=== PATIENT | female | born 1960 | race Caucasian/White ===

== ENCOUNTER → 2019-09-18 | Day surgery (SDC) | payer BC ==
[~2019-09-18] MED LIST: HYDROmorphone 2 MG/ML VIAL IV PRN; IV RINGERS,LACTATED 1000ML 1,000 ML IV SCH; LIDOCAINE 1% PF 2 ML VIAL. ID PRN; LIDOCAINE 2% PF 5 ML VIAL. ONE; MORPHINE SULFATE 2 MG/ML VIAL. IV PRN; NAPR500T8 PO; OLME20TA17 PO; OMEP40CA45 PO; ONDANSETRON PF 4 MG/2 ML VIAL. IV PRN; OXYB5TAB10 PO; PROCHLORPERAZINE 10 MG/2 ML VIAL. IV PRN; PROPOFOL 40 ML IV ONE; ROPI0.254 PO; VALS80TA3 PO; VENL37.56 PO; fentaNYL PF VIAL 100 MCG/2 ML VIAL IV PRN
[2019-09-18 08:50] VITALS: BP 125/60
--- NOTE | 2019-09-21 14:07 | PATHOLOGY ---
[facility] Accession Number: [id number] . 01 Material submitted: . esophagus - DISTAL ESOPHAGUS. Modifiers: distal . 01 Clinical history: . Pre-OP DX: GERD Post-OP DX: Rule out Alvarez's . 02 Diagnosis: Esophageal biopsies, distal esophagus: - Segments of hyperplastic squamous esophageal mucosa consistent with reflux esophagitis. (JPM:[facility] 09/21/2019) [facility] 09/21/2019 0916 Local . 02 Comment: Sections of the distal esophageal biopsy reveal segments of tangentially oriented hyperplastic squamous esophageal mucosa with focally attached lamina propria and muscularis mucosa. The findings are consistent with reflux esophagitis. There is no evidence of Alvarez's change, dysplasia, or malignancy. (JPM:[facility] 09/21/2019) . 02 Electronically signed: . Maxwell Manuel MD, Pathologist NPI- [id number] . 01 Gross description: . Received in formalin labeled "Valerie Wade, distal esophagus BX," are 3 segments of bowles soft tissue measuring 0.9 x 0.8 x 0.2 cm in aggregate dimensions and ranging from 0.4 to 0.5 cm in maximum dimension. The specimen is submitted entirely in cassette A1. (TSD; 09/18/2019) TOB/TOB 09/18/2019 2259 Local . 02 Pathologist provided ICD-10: K21.9 . 02 CPT . 242021 Specimen Comment: A courtesy copy of this report has been sent to [phone], [phone] Specimen Comment: [id number] Specimen Comment: Report sent to and Performed at: [address], [place], [place] [id number] MD Nino Lemon MD Phone: [phone] Performed at: 02 [facility] [address] [place], [place] [id number] MD Maxwell Manuel MD Phone: [phone]
== END ==
LOC: ENDOS 06:54
PROVIDERS: ATTEND Internal Medicine Gastroenterology
DX: Z12.11 Encounter for screening for malignant neoplasm of colon (principal); K64.0 First degree hemorrhoids; K21.0 Gastro-esophageal reflux disease with esophagitis; K44.9 Diaphragmatic hernia without obstruction or gangrene; F15.90 Other stimulant use, unspecified, uncomplicated; K63.89 Other specified diseases of intestine; Z88.3 Allergy status to other anti-infective agents; Z72.89 Other problems related to lifestyle; Z98.890 Other specified postprocedural states; Z96.60 Presence of unspecified orthopedic joint implant
CPT/HCPCS: 43239; 45378; 88305; J2001; J2704

== ENCOUNTER → 2020-12-05 | Outpatient (CLI) | payer BC ==
[2019-09-18 08:50] VITALS: BP 125/60
[~2020-12-05] MED LIST changes: +HYDR-2145 PO; -HYDROmorphone 2 MG/ML VIAL IV PRN; -IV RINGERS,LACTATED 1000ML 1,000 ML IV SCH; -LIDOCAINE 1% PF 2 ML VIAL. ID PRN; -LIDOCAINE 2% PF 5 ML VIAL. ONE; -MORPHINE SULFATE 2 MG/ML VIAL. IV PRN; -ONDANSETRON PF 4 MG/2 ML VIAL. IV PRN; +OXYC-325 PO; -PROCHLORPERAZINE 10 MG/2 ML VIAL. IV PRN; -PROPOFOL 40 ML IV ONE; -fentaNYL PF VIAL 100 MCG/2 ML VIAL IV PRN
== END ==
LOC: LAB 10:22
PROVIDERS: ATTEND Surgery
DX: Z01.812 Encounter for preprocedural laboratory examination (principal); K80.10 Calculus of gallbladder with chronic cholecystitis without obstruction; Z20.822 Contact with and (suspected) exposure to COVID-19
CPT/HCPCS: U0003

== ENCOUNTER 2020-12-08 07:19 | Day surgery (SDC) | payer BC ==
[~2020-12-08] VITALS: Ht 160 cm; Wt 114.5 kg
[~2020-12-08 07:19] MED LIST changes: +ACETAMINOPHEN 500 MG TABLET PO PRN; +HYDROmorphone 2 MG/ML VIAL IVP PRN; +IV RINGERS,LACTATED 1000ML 1,000 ML IV SCH; +MORPHINE SULFATE 2 MG/ML VIAL. IVP PRN; -OXYC-325 PO; +PROCHLORPERAZINE 10 MG/2 ML VIAL. IVP PRN; +fentaNYL PF VIAL 100 MCG/2 ML VIAL IVP PRN
[2020-12-08] MEDS ORDERED: fentaNYL PF VIAL 100 MCG/2 ML VIAL ONE ×3 (07:58→10:31)
[2020-12-08] MEDS ORDERED: ROCURONIUM 50 MG/5 ML VIAL. ONE (07:58)
[2020-12-08] MEDS ORDERED: KETOROLAC 30 MG/ML VIAL. ONE (07:58)
[2020-12-08] MEDS ORDERED: DEXAMETHASONE SOD PHOS 4 MG/ML VIAL ONE (07:58)
[2020-12-08] MEDS ORDERED: LIDOCAINE 2% PF 5 ML VIAL. ONE ×2 (07:58→09:31)
[2020-12-08] MEDS ORDERED: MIDAZOLAM HCL/PF 2 MG/2 ML VIAL. ONE (07:58)
[2020-12-08] MEDS ORDERED: SEVOFLURANE 61 TO 120 MINUTES. IH ONE (07:58)
[2020-12-08] MEDS ORDERED: PROPOFOL 10 MG/ML (20ML) VIAL. IV ONE (07:58)
[2020-12-08] MEDS ORDERED: ONDANSETRON PF 4 MG/2 ML VIAL. ONE (07:59)
[2020-12-08] MEDS ORDERED: BUPIVACAINE-EPI 0.25% 30 ML VIAL KIT. ONE (08:22)
[2020-12-08] MEDS ORDERED: IOHEXOL 300 MG/ML 50 ML VIAL. ONE (08:22)
[2020-12-08] MEDS ORDERED: SURGICEL HEMOSTAT 4X8 EACH. ONE (08:22)
[2020-12-08] MEDS ORDERED: OXYC-325 PO (09:02)
[2020-12-08] MEDS ORDERED: PHENYLEPHRINE 10 MG/ML VIAL. ONE (09:11)
[2020-12-08] MEDS ORDERED: GLYCOPYRROLATE 1 MG/5 ML VIAL. ONE (09:13)
[2020-12-08] MEDS ORDERED: NEOSTIGMINE METHYLSULFATE 5 MG/5 ML SYRINGE. ONE (09:13)
[2020-12-08] MEDS ORDERED: ePHEDrine PF IN SALINE 50 MG/10 ML SYRINGE. IV ONE (09:25)
[2020-12-08] MEDS ORDERED: oxyCODONE/APAP 5/325 1 TAB TABLET PO ONE ×2 (09:30)
--- NOTE | 2020-12-08 09:32 | PDOC4 ---
Operative Note Operative Note Date: December 082020 at 929 Preoperative diagnosis: Chronic cholecystitis cholelithiasis Postoperative diagnosis: Same Procedure: Laparoscopic cholecystectomy Surgeon: Cruzito Specimen: Gallbladder Dictation: Patient is a 60-year-old female with right upper quadrant abdominal pain ultrasound showing gallstones. Procedure of laparoscopic cholecystectomy was explained to the patient detail risk benefits were also discussed including bleeding infection injury to intra-abdominal contents possible necessitating further open operations alternatives to this procedure also discussed with the patient who seemed to understand and gave both verbal and written consent to have the procedure performed. Patient was taken to the operating room placed in the supine position general anesthesia was initiated once patient was sleeping i ntubated her abdomen was prepped and draped usual sterile fashion using ChloraPrep. An area just below the umbilicus was injected with quarter percent Marcaine with epinephrine incision was made 11 blade scalpel and a varies needle was placed within the abdomen creating pneumoperitoneum once this complete the millimeter port was placed and a 5 mm camera is placed within the abdomen which was inspected no other abnormalities were noted. A 5 mm port was placed in the epigastrium a 5 mm port was placed in the right midabdomen and a 5 mm port was placed in the right lateral abdomen. The dome of the gallbladder was grasped retracted cephalad the infundibulum of the gallbladder is grasped retracted laterally exposing the triangle of adherent tissues the triangle were taken down exposing the cystic duct and cystic artery both were doubly clipped and transected the gallbladder was taken off the liver with hook electrocautery placed in Endo Catch bag removed from the umbilicus right upper quadrant is irrigated and suctioned dry hemostasis deemed to be appropriate the pneumoperitoneum was reduced all ports were removed the fascial defect at the umbilicus was closed with a [id number] 0 Vicryl suture and the skin was reapproximated all port sites for subcuticular Monocryl Mastisol Steri-Strips and island dressings were applied. Patient was awakened and extubated in the operating room taken to recovery in stable condition all sponge instrument needle counts listed as correct estimated blood loss 20 mL PRISCA ANDERSON MD Dec 08, 2020 09:32
--- NOTE | 2020-12-08 09:33 | DISCH ---
DISCHARGE INSTRUCTIONS Condition on Discharge Condition on Discharge: Stable Activity After Discharge Activity Instructions for Disc: Avoid exertion Other activity instructions: No lifting more than 20 pounds for 2 weeks Diet after Discharge Diet after Discharge: Low Fat Wound Incision Care Other wound/incision instructi: May shower in 24 hours Contacting the after DC Call your doctor for: If your condition worsens Follow-Up Follow up with: Dr. Anderson in 2 weeks PRISCA ANDERSON MD Dec 08, 2020 09:33
[2020-12-08] MEDS: fentaNYL PF VIAL 100 MCG/2 ML VIAL IVP PRN ×2 (10:38→10:57)
[2020-12-08 11:20] VITALS: BP 92/70
== END 2020-12-08 11:38 | disposition home or self-care (01) ==
LOC: SURG 07:19
PROVIDERS: ATTEND Surgery
DX: K80.10 Calculus of gallbladder with chronic cholecystitis without obstruction (principal); I10 Essential (primary) hypertension; K21.9 Gastro-esophageal reflux disease without esophagitis; M19.90 Unspecified osteoarthritis, unspecified site; E66.9 Obesity, unspecified; F41.9 Anxiety disorder, unspecified; F32.9 Major depressive disorder, single episode, unspecified; Z98.51 Tubal ligation status; Z98.890 Other specified postprocedural states; Z79.899 Other long term (current) drug therapy; Z72.89 Other problems related to lifestyle; Z88.2 Allergy status to sulfonamides
CPT/HCPCS: 47562; J0690; J1100; J2250; J2370; J2405; J2704; J2710; J3010; J3490; J1885; Q9967